=== PATIENT | female | born 1950 | race African-American/Black ===

== ENCOUNTER 2020-07-01 10:54 | Emergency (ER) | payer MEDICARE, MEDICAID ==
[~2020-07-01] VITALS: Ht 162.6 cm; Wt 100.0 kg
[~2020-07-01 10:54] MED LIST: ALBU2.5V13 IH; ASPI-1497; LIPITOR; NITR0.4T; SIMV10TA97 PO
[2020-07-01 13:18] VITALS: BP 142/88
== END 2020-07-01 13:21 | disposition home or self-care (01) ==
LOC: ER 10:54
DX: R51.9 Headache, unspecified (principal); F03.90 Unspecified dementia, unspecified severity, without behavioral disturbance, psychotic disturbance, mood disturbance, and anxiety; E78.00 Pure hypercholesterolemia, unspecified; I25.2 Old myocardial infarction; Z79.82 Long term (current) use of aspirin
CPT/HCPCS: 93005; 99284